=== PATIENT | male | born 1960 | race Two or more races ===

== ENCOUNTER 2020-10-21 | Outpatient (CLI) | payer OTHER | END 2020-10-21 08:35 | disposition home or self-care (01) | LOC: PPH VACUNA | DX: Z23 Encounter for immunization (principal) ==

== ENCOUNTER → 2020-11-11 14:00 | Outpatient (CLI) | payer OTHER | END | disposition home or self-care (01) | LOC: PPH VACUNA 14:00 | DX: Z23 Encounter for immunization (principal) ==